=== PATIENT | female | born 1970 | race Caucasian/White ===

== ENCOUNTER 2024-05-18 12:28 | Day surgery (SDC) | payer OTHER ==
[2024-05-18] MEDS ORDERED: Xylocaine-Mpf 2% 5 Ml Vial IJ ONE (12:29)
[2024-05-18] MEDS ORDERED: Decadron 4 MG INJ IV ONE (12:29)
[2024-05-18 13:31] LABS: HCG URINE TEST NEGATIVE (NEGATIVE)
[2024-05-18] MEDS ORDERED: DIPRIVAN 200 MG/20 ML IV ONE (14:34)
[2024-05-18] MEDS ORDERED: Lactated Ringers 1,000 ML IV ONE (15:30)
--- NOTE | 2024-05-18 16:52 | XRAY ---
12 seconds of fluoroscopy was used in surgery for a right C2-C4 MBB.
--- NOTE | 2024-05-18 16:57 | XRAY ---
Indication: Right C2-C4 MBB. Intraoperative fluoroscopy provided for 12 seconds. 2 digital spot image submitted for interpretation demonstrates posterior needle tips projecting over the expected right C2-C4 nerve roots. Correlate with intraoperative findings/report.
== END 2024-05-18 15:08 | disposition home or self-care (01) ==
LOC: SDC-PAIN 12:28
PROVIDERS: ATTEND Psychiatry & Neurology Pain Medicine
DX: M47.812 Spondylosis without myelopathy or radiculopathy, cervical region (principal)
CPT/HCPCS: 64490; 64491; 72040; 77002; 81025; J1100; J2704